=== PATIENT | female | born 1955 | race Caucasian/White ===

== ENCOUNTER 2022-05-22 07:28 | Day surgery (SDC) | payer MEDICARE ==
[~2022-05-22] VITALS: Ht 170.2 cm; Wt 102.3 kg
[2022-05-22] VITALS (10 sets, daily range): BP systolic 119–153; BP diastolic 61–92; PULSE 49–80; TEMP 97–98.4
[2022-05-22] MEDS ORDERED: PRINIVIL10 MG PO (09:25)
[2022-05-22] MEDS ORDERED: ZYRTEC 10MG10 MG PO (09:26)
[2022-05-22] MEDS ORDERED: BYSTOLIC2.5 MG PO (09:26)
[2022-05-22] MEDS ORDERED: LAMICTAL ODT50 MG PO (09:27)
[2022-05-22] MEDS ORDERED: SEROQUEL XR300 MG PO (09:28)
[2022-05-22] MEDS ORDERED: ULTRAM 50MG TAB50 MG PO (09:30)
[2022-05-22] MEDS ORDERED: TYLENOL 500MG500 MG PO (09:31)
[2022-05-22] MEDS ORDERED: ALEVE LIQCAPS PO (09:31)
[2022-05-22] MEDS ORDERED: IBU600 MG PO (09:32)
[2022-05-22] MEDS ORDERED: KLONOPIN 0.5MG0.5 MG PO (09:32)
[2022-05-22] MEDS ORDERED: MIRALAX PA17 GM/Dose PO (09:33)
[2022-05-22] MEDS ORDERED: MYLANTA 150 ML150 M1 PO (09:34)
[2022-05-22] MEDS ORDERED: SENOKOT8.6 MG PO (09:34)
[2022-05-22] MEDS ORDERED: PROAIR HFA0.09 MG/AC PO (09:35)
[2022-05-22] MEDS ORDERED: MASON NATURAL2000 IU PO (09:36)
[2022-05-22] MEDS ORDERED: NATURAL POTASS595 MG PO (09:37)
[2022-05-22] MEDS ORDERED: CENTRUM SILVER1 TAB PO (09:37)
[2022-05-22] MEDS ORDERED: CALCIUM 600 PLU1 TAB PO (09:39)
[2022-05-22] MEDS ORDERED: INVIGOFLEX D1500 MG PO (09:40)
[2022-05-22] MEDS ORDERED: [UNRECOGNIZED DRUG - OTHER] PO (09:41)
[2022-05-22] MEDS ORDERED: MASON NATURAL1200 MG PO (09:41)
[2022-05-22] MEDS ORDERED: SUPER B COMPLEX PO (09:42)
[2022-05-22] MEDS ORDERED: MAGNESIUM250 M1 PO (09:42)
--- NOTE | 2022-05-22 14:24 | NUR ---
PT TO ROOM 331 PER BED WITH REPORT FROM LIZ @2698. PT IS A/O X3, LUNGS CTA, BOWEL SOUNDS PRESENT. DRESSING TO LEFT KNEE CDI WITH AQUACEL OVER INCISION WITH OCCLUSIVE UNRULY WRAP OVER DRESSING. GOOD PEDAL PULSES. SCDS PLACED BILATERALLY. IV TO PUMP. HOSPITALIST CONSULT CALLED TO TERI RAUSCH.
--- NOTE | 2022-05-22 14:38 | NUR ---
DR. THOMPSON AND TERI RAUSCH IN TO SEE PT PER CONSULT.
--- NOTE | 2022-05-22 22:35 | NUR ---
SHIFT REPORT FROM WENDI SHULTZ. PATIENT IN BED ON ROOM ENTRY. REQUESTS TO GO TO BATHROOM, X1 ASSIST TO BATHROOM WITH WALKER AND VOIDED WITHOUT ISSUE. HS MEDS PER EMAR. PRN TYLENOL AND OSBALDO FOR PAIN. 2+ PEDAL PULSES. UNRULY WRAP TO LLE CDI. RT ASSISTED WITH CPAP SETUP. DENIES ADDITIONAL NEEDS. CALL LIGHT IN REACH.
[2022-05-23 03:58] VITALS: BP 115/54; PULSE 65; TEMP 97.3
[2022-05-23 06:25] LABS: HEMOGLOBIN 11.8 g/dl (12.5-16.0)
[2022-05-23 06:30] LABS: HEMATOCRIT 35.1 % (37.0-47.0)
[2022-05-23 07:06] LABS: CALCIUM 8.5 mg/dL (8.4-10.2); CREATININE, serum 0.85 mg/dL (0.57-1.11); POTASSIUM 4.2 mmol/L (3.5-4.5)
[2022-05-23 07:45] VITALS: BP 112/62; PULSE 60; TEMP 98.2
--- NOTE | 2022-05-23 09:05 | NUR ---
PT DOING WELL. UP TO RECLINER FOR BREAKFAST AFTER USING BR. ATE 100@% OF BREAKFAST. DRESSING TO LEFT KNEE
--- NOTE | 2022-05-23 09:58 | NUR ---
Initial visit; Patient thanked Manager Social Work for looking in on her and offering God's blessings. Manager Social Work will keep Miladis in her prayers.
--- NOTE | 2022-05-23 10:45 | NUR ---
SW met with the patient to discuss discharge plan. The patient lives in [place] with her , Reggie (ph#[phone]). She reports independence with ADLs and has a cane and walker. The patient's PCP is Dr. Wagner Woody and she receives her medications from [facility] and [place] [facility]. The patient does not have a DPOA-HC in EMR, but she states that she does have one completed and that it designates her . The patient plans to return home with her and receive outpatient PT at [facility] upon discharge. No additional needs at this time. *Discharge plan: home with and outpatient PT*
[2022-05-23] MEDS ORDERED: CEPHALEXIN500 M1 PO (11:45)
[2022-05-23] MEDS ORDERED: ASPIRIN 81M81 MG/TA2 PO (11:45)
[2022-05-23] MEDS ORDERED: PERCOCET 325 MG1 TA2 PO (11:46)
[2022-05-23] MEDS ORDERED: NAPROSYN500 MG PO (11:47)
[2022-05-23 12:40] VITALS: BP 130/64; PULSE 62; TEMP 98.1
--- NOTE | 2022-05-23 15:16 | NUR ---
REVIEWED DISCHARGE INSTRUCTIONS WITH PT AND SPOUSE. QUESTIONS SOLICITED AND ANSWERED. PT LEFT UNIT BY WHEEL CHAIR. HAD PERSONAL BELONGINGS ON CART.
== END 2022-05-23 15:19 | disposition home or self-care (01) ==
LOC: SDCO 07:28 → SURG 07:28 → INPTSU 07:28 → SURG 10:00 → SDCO 10:00 → EDSTATUS 10:00 → SURG 14:01 → INPTSU 14:01 → SDCO 05-23 15:19 → SURG 05-23 15:19
PROVIDERS: Orthopaedic Surgery
DX: M17.9 Osteoarthritis of knee, unspecified (principal); I10 Essential (primary) hypertension; K21.9 Gastro-esophageal reflux disease without esophagitis; H91.93 Unspecified hearing loss, bilateral; R00.1 Bradycardia, unspecified; F31.9 Bipolar disorder, unspecified; F41.9 Anxiety disorder, unspecified; G47.33 Obstructive sleep apnea (adult) (pediatric); Z79.899 Other long term (current) drug therapy
CPT/HCPCS: OP; A9284; C1713; C1776; J0690; J1100; J1580; J1885; J2250; J2270; J2405; J2704; J2795; J3010; J7120

== ENCOUNTER 2023-11-04 23:17 | Emergency (ER) | payer MEDICARE ==
[~2023-11-04] VITALS: Ht 167.6 cm; Wt 100.9 kg
[~2023-11-04 23:17] MED LIST: ALEVE LIQCAPS PO; ASPIRIN 81M81 MG/TA2 PO; BYSTOLIC2.5 MG PO; CALCIUM 600 PLU1 TAB PO; CELEBREX 1100 MG/CAP; CELEBREX 1100 MG/CAP PO; CENTRUM SILVER1 TAB PO; CEPHALEXIN500 M1 PO; IBU600 MG PO; INVIGOFLEX D1500 MG PO; KLONOPIN 0.5MG0.5 MG PO; LAMICTAL ODT50 MG PO; MAGNESIUM250 M1 PO; MASON NATURAL1200 MG PO; MASON NATURAL2000 IU PO; MIRALAX PA17 GM/Dose PO; MYLANTA 150 ML150 M1 PO; NAPROSYN500 MG PO; NATURAL POTASS595 MG PO; PERCOCET 325 MG1 TA2 PO; PRINIVIL10 MG PO; PROAIR HFA0.09 MG/AC PO; PROBIOTIC BLEN1 EACH PO; PROTONIX 40MG T40 MG PO; SENOKOT8.6 MG PO; SEROQUEL300 MG PO; SUPER B COMPLEX PO; TYLENOL 500MG500 MG PO; ULTRAM 50MG TAB50 MG PO; ZYRTEC 10MG10 MG PO; [UNRECOGNIZED DRUG - OTHER] PO
[2023-11-04 23:18] VITALS: TEMP 97.9
[2023-11-04] MEDS ORDERED: DESYREL DIVIDO150 M1 PO (23:23)
[2023-11-04] MEDS ORDERED: LITHIUM CA150 MG/CAP (23:24)
[2023-11-04] MEDS ORDERED: NS 500 ML IV ONE (23:30)
[2023-11-04 23:52] LABS: BASO # 0.1 K/mm3 (0.0-0.2); BASO % 0.7 % (0.0-2.0); EOS # 0.4 K/mm3 (0.0-0.7); GRAN # 3.8 K/mm3 (1.4-6.5); GRAN % 51.8 % (42.2-75.2); HEMATOCRIT 36.2 % (37.0-47.0); HEMOGLOBIN 12.3 g/dl (12.5-16.0); LYMPH # 2.5 K/mm3 (1.2-3.4); LYMPH % 33.3 % (20.0-51.0); MEAN CELL VOLUME 91 fl (80.0-100.0); MEAN CORPUSCULAR HEMOGLOBIN 31 pg (27-31); MEAN CORPUSCULAR HGB CONC 34 g/dl (33.0-37.0); MEAN PLATELET VOLUME 10.7 fl (7.4-10.4); MONO # 0.6 K/mm3 (0.1-0.6); MONO % 8.1 % (1.7-9.3); PLATELET COUNT 210 K/mm3 (130-400); RED BLOOD COUNT 3.96 M/mm3 (4.10-5.30); REDCELL DISTRIBUTION WIDTH-CV 13.2 % (11.5-14.5)
[2023-11-05 00:13] LABS: ALBUMIN 3.7 g/dL (3.4-4.8); BILIRUBIN,TOTAL 0.3 mg/dL (0.2-1.2); CALCIUM 9.2 mg/dL (8.4-10.2); CREATININE, serum 0.86 mg/dL (0.57-1.11); POTASSIUM 3.7 mEq/L (3.5-4.5); TOTAL PROTEIN 6.5 g/dl (6.2-8.1)
[2023-11-05 00:43] LABS: COLLECTION METHOD CLEAN CATCH
[2023-11-05 00:55] LABS: URINE APPEARANCE CLEAR (CLEAR/HAZY); URINE BLOOD NEGATIVE (NEGATIVE); URINE COLOR YELLOW (YELLOW); URINE GLUCOSE NEGATIVE (NEGATIVE); URINE KETONE NEGATIVE (NEGATIVE); URINE NITRATE NEGATIVE (NEGATIVE); URINE PROTEIN(semi-quant) NEGATIVE (NEGATIVE); URINE UROBILINOGEN 0.2 E.U/dL (0.2-1.0)
[2023-11-05 01:20] VITALS: BP 141/78; PULSE 78
== END 2023-11-05 01:47 | disposition home or self-care (01) ==
LOC: COL.ER 23:17
PROVIDERS: Personal Emergency Response Attendant
DX: R43.8 Other disturbances of smell and taste (principal); Z00.00 Encounter for general adult medical examination without abnormal findings
CPT/HCPCS: J7040